=== PATIENT | male | born 1950 | race Caucasian/White ===

== ENCOUNTER → 2018-11-22 08:46 | Outpatient (CLI) | payer MEDICARE, BC ==
--- NOTE | 2018-11-25 13:56 | EC ---
PATIENT:NITHYA FLORES DATE OF SERVICE: 11/22/18 SEX: M MEDICAL RECORD: [id number] DATE OF : [birth year] [facility] AGE OF PATIENT: 67 ADMISSION DATE: 11/22/18 REFERRING PHYSICIAN: INTERPRETING PHYSICIAN: ALTON AUGUSTINE MD ECHOCARDIOGRAM REPORT ECHO CHARGES 4 ECHO COMPLETE Date: 11/22/18 CLINICAL DIAGNOSIS: MILLIGAN/CP/ANGINA/MURMUR H/O HTN ECHOCARDIOGRAPHIC MEASUREMENTS (adult normal given) AC root (d.<3.7cm) 3.8 cm LV Septum d (<1.2 cm> 1.6 cm Valve Excursion 2.0 cm LV Septum (systole) 1.9 cm Left Atria (s.<4.0cm> 4.2 cm LVPW d(<1.2cm) 1.5 cm RV (d.<2.3cm) 3.3 cm LVPW (sytole) 2.0 cm LV diastole(<5.6CM) 6.1 cm MV E-F(>70mm/sec) cm LV systole 4.5 cm LVOT Diameter 2.2 cm MV exc.(>10mm) cm Est.ejection fraction (50-75%) % DOPPLER: LVIT cm/sec A 67.0 cm/sec E 82.0 cm/sec LA cm/sec RVSP 46.0 mmHg LVOT 103 cm/sec AOP1/2T m/s Asc. 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 Edwards TAPE# PACS Pericardial Effusion N DATE OF SERVICE: Adequate 2D, color flow, spectral Doppler, M-mode LVH is present. LV internal dimensions are normal. Wall motion is normal. Mildly globally hypo. LV function is mildly reduced, estimated EF at 40% to 45%. Aortic valve sclerosis, no stenosis with Doppler interrogation. Left atrium minimally dilated at 4.2 cm. Mitral valve shows no prolapse. Trace MR. Right-sided chambers grossly normal. Mild TR. ECHOCARDIOGRAM REPORT [id number] NITHYA FLORES TRANSINT:[id number] Voice Confirmation ID: [id number] DOCUMENT ID: [id number] ALTON AUGUSTINE MD at 1356 CC: [id number] DICTATION DATE: 11/23/18 1605 LEGISLATIVE AIDE: 11/24/18 0107 [facility] CLI 11/22/18 [place] [id number] [place] [id number]
--- NOTE | 2018-12-02 13:30 | ST ---
PATIENT:NITHYA FLORES MEDICAL RECORD: [id number] SEX: M LOCATION:[facility] ORDER #: ADMISSION DATE: 11/22/18 AGE OF PATIENT: 67 REFERRING PHYSICIAN: INTERPRETING PHYSICIAN: MARY ROBLES MD DATE OF SERVICE: 11/22/2018 PROCEDURE: Nuclear stress test. INDICATIONS: Shortness of breath, hypertension, hyperlipidemia, abnormal calcium, CT score suggestive of coronary artery disease. The patient was exercised on standard Lexiscan protocol with 33 mCi of sestamibi injected at peak stress, 11 mCi used previously for rest images. FINDINGS: Gated SPECT reveals preserved ejection fraction at 66% with good wall motion and thickening and brightening throughout all segments. SPECT imaging: Cardiolite was used as myocardial perfusion agent. There is homogeneous uptake throughout all segments at rest and stress with no evidence of inducible ischemia or previous infarction. OVERALL IMPRESSION: 1. This is a normal nuclear stress test with no evidence of inducible ischemia or previous infarction. 2. Gated SPECT reveals a preserved ejection fraction at 66%. In this patient with ongoing symptomatology, the current scan does not suggest the presence of hemodynamically significant coronary artery disease. Evaluate noncardiac etiology of chest pain. TRANSINT:[id number] Voice Confirmation ID: [id number] DOCUMENT ID: [id number] MARY ROBLES MD at 1330 CC: MILA ARRIOLA MD [id number] DICTATION DATE: 11/24/18 1210 PSYCHIATRY TEACHER: 11/25/18 0706 [facility] CLI 11/22/[address] [id number]
== END | disposition home or self-care (01) ==
LOC: D.HCCECHO 08:46
PROVIDERS: ATTEND Internal Medicine Interventional Cardiology
DX: I20.9 Angina pectoris, unspecified (principal)